=== PATIENT | male | born 1990 | race Caucasian/White ===

== ENCOUNTER 2024-09-19 19:09 | Emergency (ER) | payer BC ==
[2024-09-19] MEDS: Amoxicillin/Clavulanate K 875-125 MG Tab PO ONE (20:27)
[2024-09-19] MEDS: Acetaminophen/HYDROcodone 325-5 MG Tab PO ONE (20:27)
[2024-09-19 20:29] VITALS: BP 136/85; PULSE 61
== END 2024-09-19 20:35 | disposition home or self-care (01) ==
LOC: MW.ED 19:09 → MERGE 19:09 → MW.ED 20:35
DX: H92.01 Otalgia, right ear (principal); F17.210 Nicotine dependence, cigarettes, uncomplicated; Z88.8 Allergy status to other drugs, medicaments and biological substances
CPT/HCPCS: 99283; A9270